=== PATIENT | female | born 1940 | race American Indian/Alaskan Native ===

== ENCOUNTER 2016-11-18 09:36 | Emergency (ER) | payer MEDICAID ==
[2016-11-18 09:50] VITALS: BP 136/80
[2016-11-18] MEDS ORDERED: NACL 0.9% IR ONE (09:58)
[2016-11-18] MEDS ORDERED: XYLOCAINE 2% INFILTRATI ONE (10:01)
[2016-11-18] MEDS: XYLOCAINE 2% INFILTRATI ONE ×2 (10:04→11:01)
--- NOTE | 2016-11-18 11:01 | Emergency Department Report ---
Entered by MARITZA MARROQUIN, acting as scribe for LEAH SEPULVEDA NP. - General Chief complaint: Skin/Abscess/Foreign Body Stated complaint: LUMP ON BACK Time Seen by Provider: 11/18/16 10:03 Source: patient, family Mode of arrival: Ambulatory Limitations: Other - History of Present Illness Initial comments: 76 y/o female with PMHx of dementia, presents to the ED c/o acute skin abscess to left neck that began 4 days ago. Associated symptoms include redness and pain but she denies fever and chills. Pain is described as an 6/10 on a severity scale. No alleviating or aggravating factors. NKDA. GOMES complaint: abscess/boil Onset/Timin -: days(s) Location: neck (left neck) Severity: moderate Severity scale (0 -10): 6 Quality: constant Consistency: constant Improves with: none Worsens with: none Context: none Associated symptoms: other (redness, pain, no fever, no chills) Treatments Prior to Arrival: none - Related Data Previous Rx's Medication Instructions Recorded Last Taken Type Acetaminophen/Codeine [Tylenol 1 tab PO TID PRN #20 tab 11/18/16 Unknown Rx /Codeine # 3 tab] Cephalexin [Keflex] 500 mg PO QID #40 capsule 11/18/16 Unknown Rx Allergies Allergy/AdvReac Type Severity Reaction Status Date / Time No Known Allergies Allergy Unverified 11/18/16 09:49 Abscess Boil HPI - HPI Chief Complaint: Skin/Abscess/Foreign Body Stated Complaint: LUMP ON BACK Time Seen by Provider: 11/18/16 09:52 Duration: 4 Days Location: Neck Severity: Moderate Home Medications: Previous Rx's Medication Instructions Recorded Last Taken Type Acetaminophen/Codeine [Tylenol 1 tab PO TID PRN #20 tab 11/18/16 Unknown Rx /Codeine # 3 tab] Cephalexin [Keflex] 500 mg PO QID #40 capsule 11/18/16 Unknown Rx Allergies/Adverse Reactions: Allergies Allergy/AdvReac Type Severity Reaction Status Date / Time No Known Allergies Allergy Unverified 11/18/16 09:49 ED Review of Systems Comment: All other systems reviewed and negative Constitutional: denies: chills, fever Skin: other (abscess to left neck, redness, pain) ED Past Medical Hx - Past Medical History Previous Medical History?: Yes Hx Dementia: Yes - Surgical History Past Surgical History?: No - Social History Smoking Status: Current Every Day Smoker Substance Use Type: None - Medications Home Medications: Home Medications Medication Instructions Recorded Confirmed Last Taken Type Acetaminophen/Codeine [Tylenol 1 tab PO TID PRN #20 tab 11/18/16 Unknown Rx /Codeine # 3 tab] Cephalexin [Keflex] 500 mg PO QID #40 capsule 11/18/16 Unknown Rx ED Physical Exam - General Limitations: Other General appearance: alert, in no apparent distress - Head Head exam: Present: atraumatic, normocephalic, normal inspection - Eye Eye exam: Present: normal appearance, PERRL, EOMI Pupils: Present: normal accommodation - ENT ENT exam: Present: normal exam, normal orophraynx, mucous membranes moist, TM's normal bilaterally, normal external ear exam. Absent: mucous membranes dry - Neck Neck exam: Present: normal inspection, full ROM, other (abscess to left trapezious superficial 2-3 cm, flunctuance, erythema, painful). Absent: tenderness - Respiratory Respiratory exam: Present: normal lung sounds bilaterally. Absent: wheezes, rales, rhonchi - Cardiovascular Cardiovascular Exam: Present: regular rate, normal rhythm, normal heart sounds. Absent: systolic murmur, diastolic murmur, rubs, gallop - GI/Abdominal GI/Abdominal exam: Present: soft, normal bowel sounds. Absent: tenderness, guarding, rebound - Extremities Exam Extremities exam: Present: normal inspection, full ROM, normal capillary refill. Absent: tenderness, pedal edema, joint swelling, calf tenderness - Back Exam Back exam: Present: normal inspection, full ROM. Absent: tenderness, CVA tenderness (R), CVA tenderness (L), rash noted - Neurological Exam Neurological exam: Present: alert, oriented X3 - Psychiatric Psychiatric exam: Present: normal affect, normal mood - Skin Skin exam: Present: other (abscess to left trapezious superficial 2-3 cm, flunctuance, erythema, painful) ED Course Vital Signs 11/18/16 09:39 Temperature 98.3 F Pulse Rate 80 Respiratory 16 Rate Blood Pressure 136/80 O2 Sat by Pulse 98 Oximetry - I & D Left Upper Neck Type of Procedure: Simple Site: left neck Blade Size: 11 I & D Procedure: sterile dressing applied Progress: pt is a 76 y/o aaf with no med hx no primary care doctor who presents for 2x3 cm round abscess left posterior neck and shoulder regions , abscess soft fluctuant, erythema painful to touch, I&D of same, skin prepped with betadine solution, anesthesia with lidocain 2% 3cc, abscess reduced with 11 blade, straight incision, purulent output modarate amount , abscess blunt dissection inoculations with forceps, irrigated with 40 cc ns, packed with iodoform 4x4 dressing and tape there is no bleeding noted pt tolerated procedure with minimal distress, patient and family member given wound care instructions, both verbalized agreement and understanding of same. ED Medical Decision Making - Medical Decision Making ipt presents for abscess posterior neck I&D see procedure noted, pt and familiy member given wound care instructions, pt will return to fast track or primary care in 2-3 day for wound check or sooner if symptoms worsen both pt and family member verbalized agreement and understanding of discharge instructions. ED Disposition Clinical Impression: Cutaneous abscess of neck Disposition: - TO HOME OR SELFCARE Is pt being admited?: No Does the pt Need Aspirin: No Condition: Good Instructions: Abscess Incision and Drainage (ED) Additional Instructions: follow up with Dr. Wiggins in 2-3 days for wound check Prescriptions: Acetaminophen/Codeine [Tylenol /Codeine # 3 tab] 1 tab PO TID PRN #20 tab PRN Reason: Pain Cephalexin [Keflex] 500 mg PO QID #40 capsule Referrals: PRIMARY CARE,MD [Primary Care Provider] - 3-5 Days Forms: Work/School Release Form(ED) Time of Disposition: 11:00 This documentation as recorded by the [facility],accurately reflects the service I personally performed and the decisions made by me, LEAH SEPULVEDA, GREG.
== END 2016-11-18 11:07 | disposition home or self-care (01) ==
LOC: ED 09:36
DX: L02.11 Cutaneous abscess of neck (principal); F17.200 Nicotine dependence, unspecified, uncomplicated; F03.90 Unspecified dementia, unspecified severity, without behavioral disturbance, psychotic disturbance, mood disturbance, and anxiety

== ENCOUNTER 2016-11-21 21:29 | Emergency (ER) | payer MEDICARE ==
[2016-11-22 02:33] VITALS: BP 144/69
--- NOTE | 2016-11-22 03:14 | Emergency Department Report ---
ED Recheck HPI - General Chief Complaint: Laceration/Recheck/Suture Stated Complaint: RECHECK/PACKING OF ABCESS Time Seen by Provider: 11/22/16 02:37 Source: patient, family Mode of arrival: Ambulatory Limitations: Other (patient with Alzheimer's) - History of Present Illness Initial Comments: Patient here with family member who brought patient to the hospital to have packing removed from abscess to left base of his neck that was placed on 2016. pt has history of dementia and she is not hearing. She was discharged home on Tylenol with Codeine and Keflex to take 4 times a day. I spoke with patient's son via phone and he said that patient has been given the Keflex as was prescribed. I also told him that packing is not ready to be removed so patient will need to come back on Monday to have it removed. Patient denies any pain at present. Denies any fever or chills. Complaint: wound re-check Onset/Timin -: days(s) Initial Visit For: abscess Returns Today for: wound recheck Symptoms Since Prior Visit: no new symptoms Context: planned re-check Associated Symptoms: none Treatments Prior to Arrival: dressings, Given Antibiotics on, Given Pain Meds on - Related Data Previous Rx's Medication Instructions Recorded Last Taken Type Acetaminophen/Codeine [Tylenol 1 tab PO TID PRN #20 tab 11/18/16 Unknown Rx /Codeine # 3 tab] Cephalexin [Keflex] 500 mg PO QID #40 capsule 11/18/16 Unknown Rx Allergies Allergy/AdvReac Type Severity Reaction Status Date / Time No Known Allergies Allergy Unverified 11/18/16 09:49 ED Review of Systems ROS: Stated complaint: RECHECK/PACKING OF ABCESS Other details as noted in HPI Comment: All other systems reviewed and negative Constitutional: no symptoms reported Eyes: denies: vision change Respiratory: no symptoms reported Cardiovascular: denies: chest pain, palpitations, edema, syncope Gastrointestinal: denies: nausea, vomiting Musculoskeletal: denies: back pain, joint swelling, arthralgia, myalgia Skin: other (abscess to base of his neck on the left with packing) Neurological: denies: headache, vertigo ED Past Medical Hx - Past Medical History Previous Medical History?: Yes Hx Dementia: Yes - Surgical History Past Surgical History?: No - Family History Family history: hypertension - Social History Smoking Status: Never Smoker Substance Use Type: None - Medications Home Medications: Home Medications Medication Instructions Recorded Confirmed Last Taken Type Acetaminophen/Codeine [Tylenol 1 tab PO TID PRN #20 tab 11/18/16 Unknown Rx /Codeine # 3 tab] Cephalexin [Keflex] 500 mg PO QID #40 capsule 11/18/16 Unknown Rx ED Physical Exam - General Limitations: Other (patient with Alzheimer's and with short-term memory loss but she is appropriate and answers questions in appropriately.) General appearance: alert, in no apparent distress - Head Head exam: Present: atraumatic, normocephalic, normal inspection - Eye Eye exam: Present: normal appearance, PERRL, EOMI Pupils: Present: normal accommodation - Neck Neck exam: Present: normal inspection, tenderness (tender to palpate at the base of left neck at abscess site). Absent: meningismus, full ROM, lymphadenopathy - Respiratory Respiratory exam: Present: normal lung sounds bilaterally. Absent: respiratory distress, chest wall tenderness - Cardiovascular Cardiovascular Exam: Present: regular rate, normal rhythm, normal heart sounds - Extremities Exam Extremities exam: Present: normal inspection, full ROM, normal capillary refill. Absent: tenderness, pedal edema, joint swelling, calf tenderness - Back Exam Back exam: Present: normal inspection, full ROM. Absent: tenderness - Neurological Exam Neurological exam: Present: alert, normal gait, reflexes normal, other (patient oriented to person and place.). Absent: motor sensory deficit - Psychiatric Psychiatric exam: Present: normal affect, normal mood - Skin Skin exam: Present: warm, dry, erythema, other (abscess) - Expanded Skin Exam Expanded Type of lesion: Present: abscess (with PAC in) Distribution of rash: neck (left neck posteriorly) Description of rash: Present: tenderness, erythematous, swelling (mild swelling) , discharge (minimal serous and drainage and), indurated. Absent: fluctuant ED Course Vital Signs 11/22/16 11/22/16 00:04 02:33 Temperature 98.5 F Pulse Rate 65 60 Respiratory 18 20 Rate Blood Pressure 111/65 Blood Pressure 144/69 [Left] O2 Sat by Pulse 98 100 Oximetry - Reevaluation(s) Reevaluation #1: 11/22/16 03:43 Packing is not ready to be removed from left neck because patient still with induration without fluctuance. I discussed the patient and family that she will need to return on Monday to have wound reevaluated. Patient remains on Keflex to take 4 times a day. Wound area cleansed with normal saline and dry sterile dressing placed. ED Recheck MDM - Medical Decision Making ED course: Patient here for wound recheck and possibility of packing removal to left neck posteriorly. She had packing placed on 11/18/2016 and was told to come back for reevaluation. Upon reevaluation, the wound with induration and nonfluctuant with packing in place. Discussed with patient and spoke with her son on phone and let them know that pack in will stay in and patient will need to return to the hospital on Monday for reevaluation. And that he will need to put warm compresses to affected area 3-4 times a day and to continue given patient antibiotic as previously prescribed. Voice understanding and patient discharged home with family friend in stable condition. Sterile dry dressing placed the site after cleaning in an packing left in place. Critical care attestation.: If time is entered above; I have spent that time in minutes in the direct care of this critically ill patient, excluding procedure time. ED Disposition Clinical Impression: Encounter for wound re-check Disposition: DC-01 TO HOME OR SELFCARE Is pt being admited?: No Does the pt Need Aspirin: No Condition: Stable Instructions: Abscess (ED), Acute Wound Care (ED) Additional Instructions: Please leave packing in and have patient return to emergency room on 11/25/2016 for reevaluation. continue to give patient antibiotic as previously prescribed. Referrals: return to, ER [Other] - 11/25/16 Forms: Accompanied Note
== END 2016-11-22 03:57 | disposition home or self-care (01) ==
LOC: ED 21:29
DX: Z48.01 Encounter for change or removal of surgical wound dressing (principal); F03.90 Unspecified dementia, unspecified severity, without behavioral disturbance, psychotic disturbance, mood disturbance, and anxiety
CPT/HCPCS: 99283

== ENCOUNTER 2016-11-25 11:32 | Emergency (ER) | payer MEDICARE ==
[2016-11-25] MEDS ORDERED: TRIPLE ANTIBIOTIC TP ONE (13:57)
--- NOTE | 2016-11-25 14:11 | Emergency Department Report ---
Suture/Staple Removal - HPI Chief Complaint: Laceration/Recheck/Suture Stated Complaint: WOUND CHECK` Time Seen by Provider: 11/25/16 13:46 When Sutures or [place] Placed: 5-7 Days Ago Wound Location: L post neck ED Review of Systems ROS: Stated complaint: WOUND CHECK` Other details as noted in HPI Comment: All other systems reviewed and negative Constitutional: denies: chills, fever ENT: other (pt is hard of hearing ) Gastrointestinal: other (tolerating antibiotics ). denies: nausea, vomiting Musculoskeletal: other (denies neck pain ) Skin: other (packing in place ) ED Past Medical Hx - Past Medical History Hx Dementia: Yes - Social History Smoking Status: Never Smoker Substance Use Type: None - Medications Home Medications: Home Medications Medication Instructions Recorded Confirmed Last Taken Type Acetaminophen/Codeine [Tylenol 1 tab PO TID PRN #20 tab 11/18/16 Unknown Rx /Codeine # 3 tab] Cephalexin [Keflex] 500 mg PO QID #40 capsule 11/18/16 Unknown Rx Mupirocin [Bactroban 2%] 1 applic TP TID 5 Days 11/25/16 Unknown Rx Suture Removal Exam - Exam General: Vital signs noted. No distress. Alert and acting appropriately. Wound: Yes Drainage (noted on packing ), No Pathologic Erythema, No Tenderness Other Systems: All other systems reviewed and are unremarkable. ED Course Vital Signs 11/25/16 12:38 Temperature 97.9 F Pulse Rate 70 Respiratory 16 Rate Blood Pressure 142/97 O2 Sat by Pulse 99 Oximetry - Reevaluation(s) Reevaluation #1: 11/25/16 14:08 packing removed from L post neck, drainage noted to packing. site flushed. no further drainage. no surrounding cellulitis - Pulse Oximetry Interpretation Digit-Finger Initial Pulse Oximetry Readin Actions Taken: none ED Recheck MDM - Differential Diagnosis Wound Recheck, Cellultitis Recheck, Cutananeous Abscess reche Critical Care Time: No Critical care attestation.: If time is entered above; I have spent that time in minutes in the direct care of this critically ill patient, excluding procedure time. ED Disposition Clinical Impression: Cutaneous abscess of neck, Abscess packing removal Disposition: DC- TO HOME OR SELFCARE Is pt being admited?: No Does the pt Need Aspirin: No Condition: Stable Instructions: Abscess (ED) Additional Instructions: Continue warm compresses at least four times a day and continue antibiotics Return to the ed if pt's neck pain returns, she has fevers or you notice an increase in swelling Wash I and D site at least twice a day with mild antibacterial soap, pat dry, apply RX ointment and cover with dressing Prescriptions: Mupirocin [Bactroban 2%] 1 applic TP TID 5 Days Referrals: YADIRA MILLIGAN MD [Staff Physician] - 3-5 Days Forms: Accompanied Note Time of Disposition: 14:11
[2016-11-25 14:16] VITALS: BP 145/80
== END 2016-11-25 14:20 | disposition home or self-care (01) ==
LOC: ED 11:32
DX: L02.11 Cutaneous abscess of neck (principal)
CPT/HCPCS: 99282; A6250